=== PATIENT | male | born 1950 | race Two or more races ===

== ENCOUNTER 2019-05-09 08:50 | Day surgery (SDC) | payer OTHER ==
[2019-05-08 11:07] VITALS: BMI 24.3
[2019-05-09] MEDS ORDERED: PROPOFOL 20 ML ONE ×2 (09:06→09:46)
[2019-05-09] MEDS ORDERED: MIDAZOLAM HCL 2 MG/2 ML SINGLE DOSE VIAL ONE ×2 (09:17→09:47)
[2019-05-09] MEDS ORDERED: LIDOCAINE HCL 2% (20ML MULTI-DOSE VIAL) NR ONE (09:59)
[2019-05-09] MEDS ORDERED: LIDOCAINE HCL 2% (50ML VIAL) INF ONE (10:59)
[2019-05-09 11:32] VITALS: TEMP 97.4
[2019-05-09 12:00] VITALS: BP 128/72; PULSE 58
--- NOTE | 2019-05-10 13:39 | OP ---
DATE OF OPERATION: 05/09/2019 PREOPERATIVE DIAGNOSIS: Right small finger trigger finger. POSTOPERATIVE DIAGNOSIS: Right small finger trigger finger. OPERATIVE PROCEDURE: Right small finger trigger finger release. SURGEON: Cedric Lazcano MD ANESTHESIA: Local with sedation. COMPLICATIONS: None. ESTIMATED BLOOD LOSS: Minimal. INDICATION FOR PROCEDURE: The patient is a 68-year-old female with the above finding indicated for operative treatment. Risks, benefits, and alternatives were discussed with the patient at length. Proper informed consent was obtained. DESCRIPTION OF PROCEDURE: After proper identification of the patient and the correct operative site, patient was brought to the operating room and placed supine on the operative table. Prominences were well padded. Sedation was given by the anesthesiologist. Local anesthesia was given with 2% lidocaine. Right upper extremity was prepped and draped in the usual sterile fashion. A well-padded tourniquet was placed as well as a sterile prep. An Esmarch bandage was used to exsanguinate the right upper extremity. Tourniquet was inflated to 250 mmHg. Longitudinal incision was made over the small finger A1 tom. Incision was taken sharply through the skin, with blunt and sharp dissection through the subcutaneous tissues. A1 tom was identified, divided longitudinally. Patient was asked to flex and extend her finger. No further triggering was noted. Wound was repaired with 5-0 fast-absorbing plain gut. Patient was brought to recovery room in stable condition. She tolerated the procedure well. CEDRIC LAZCANO M.D. [id number]
== END 2019-05-09 12:05 | disposition home or self-care (01) ==
LOC: FASU 08:50
PROVIDERS: ATTEND Orthopaedic Surgery Hand Surgery
PROC: 0LN70ZZ Release Right Hand Tendon, Open Approach (ICD-10-PCS; principal; 2019-05-09 10:59)
DX: M65.351 Trigger finger, right little finger (principal)